=== PATIENT | male | born 1985 | race Caucasian/White ===

== ENCOUNTER 2016-11-29 23:09 | Emergency (ER) | payer MEDICAID ==
[~2016-11-29] VITALS: Ht 185.4 cm; Wt 104.3 kg
--- NOTE | 2016-11-30 00:07 | Emergency Room Report ---
History of Present Illness Time Seen by 233Lanie Presenting Problem in Triage Pt arrived:Walked Presenting Problem:C/O SEVERE LOW BACK PAIN WHICH RADIATES DOWN RIGHT LEG X 2 DAYS. HX SCIATICA AND HERNIATED DISC X 2 Onset of symptoms date/time:/ or onset unknown for:MEDICAL HX UNKNOWN Treatment Prior to Arrival: [facility] Provided by: Sepsis Risk Assessment: Temp: 98.4 B/P: 143/87 MAP: 105 Pulse: 80 Resp: 20 Recent fever? N Clinical Suspician of Infection? N Mental Status: 1 - Regular (Normal Baseline) Sepsis Risk:Low Sepsis RiskN Have you (or family members/close friends) recently traveled outside the [place]? N If Yes, where/when: Have you had exposure to infectious disease within the past month? N TB? Other? Specify: Source patient, RN notes reviewed, old records Exam Limitations no limitations Comment wm with hx of lumbar pain with rad to rt lower leg with hx of lumbar disc disease - no fever/rash/trauma or b/b or cauda equina sx -he reports inc over the last few days Cardiac Chest Pain Chest pain indicative of cardiac No Timing/Duration this evening Severity moderate ALLERGIES Coded Allergies: codeine (11/29/16) lidocaine (11/29/16) History Medical History General CAD? No Angina: No [place]: No Hypertension? No Hyperlipidemia? No CHF? No DVT? No PE? No COPD? No Asthma? No Anemia? No GERD? No Gastric ulcers? No GI Bleed? No Hernia? No Thyroid Problems? No Hypothyroidism? No CVA? No Seizures? No Diabetes? No Renal Insuffiency? No End Stage Renal Disease? No UTI? No Stones? No BPH? No GB Disease: No Nephritic Syndrome? No Asplenia? No Hepatitis? No Sickle Cell Disease? No Arthritis? No Migraines? No Cataracts? No Glaucoma? No MRSA? No HIV? No TB? No Anxiety? No Depression? No Cancer? No Immunization Hx DT/Tetanus 1-4 Years Ago Surgical Hx Previous Surgery?Y APPENDECTOMY Social History Smoking Hx Smoker: Current Every Day Smoker Tobacco: Yes Type Cigarettes Packs/day < 1 Pack Alcohol Alcohol: Yes Drugs none Review of Systems All Other Systems Reviewed and Negative Constitutional denies fever Eyes denies drainage ENT denies: ear discharge, epistaxis, throat pain. Respiratory denies cough, denies shortness of breath, denies wheezing Cardiovascular denies chest pain, denies palpitations, denies syncope Gastrointestinal denies abdominal pain, denies diarrhea, denies vomiting Genitourinary denies: dysuria, frequency, hesitancy, hematuria. Musculoskeletal see HPI, back pain, denies joint pain, denies joint swelling, denies neck pain Skin denies rash Psychiatric/Neurological denies headache, denies seizure Physical Exam Vital Signs Vital Signs Date Time Temp Pulse Resp B/P Pulse O2 O2 Flow FiO2 Ox Delivery Rate 11/29 2317 98.4 80 20 143/87 97 - WBC >12,000 or <4,000 or 10% bands? 2 or more SIRS Criteria Met? B/P:143/87 MAP:105 Creatinine >2.0? UA output<0.5ml/kg/hr for 2 hrs? Platelet count >100,000? Lactate >2.0mmol/1? INR >1.2 or PTT > than 60 sec? Evidence of Organ Dysfunction? Provider documented clinical suspician of infection? N Sepsis Criteria Count: 1N Sepsis Risk: Low Sepsis RiskN General Appearance no apparent distress Eye Exam - bilateral eye PERRL, bilateral eye EOMI Ear, Nose, Throat normal ENT inspection Neck supple Respiratory Status No: respiratory distress. Cardiovascular regular rate/rhythm Peripheral Pulses Pulses normal Yes Gastrointestinal soft Back no CVA tenderness, no vertebral tenderness, bowel/bladder continent, strt leg raising(R)-ABNL, decreased range of motion, muscle spasm Extremities normal inspection Strength 4 Upper Ext (L), 4 Upper Ext (R), 4 Lower Ext (L), 4 Lower Ext (R) Neurologic alert, overnight stocker II-XII nml as tested, no motor/sensory deficits Reflexes Reflexes normal No Mental status normal mood/affect Skin no rash cons.w/shingles Medical Decision Making LABS/Meds/Orders Pt receiving controlled substance in ED? No Results/Orders Current Medication Orders Sig/Brock Start time Last Medication Dose Route Stop Time Status Admin Hydrocodone Bitart/ 1 TAB ONCE ONE 11/30 29 r Acetaminophen PO 11/30 30 Orphenadrine Citrate 60 MG ONCE ONE 11/30 29 AC IM 11/30 30 Tramadol HCl 1 KADEEM ONCE ONE 11/30 29 r PO 11/30 30 Dexamethasone Sodium 8 MG ONCE ONE 11/30 14 DC Phosphate IM 12/01 15 Ketorolac 60 MG ONCE ONE 09/07 0015 DC Tromethamine IM 11/30 0016 Orders Procedure Date/time Status DIET-NOTHING BY MOUTH 11/[address] LUMBAR SPINE W/O CONTRAST 11/[address] SCAN REQ 11/29 2328 Complete XRAY/CT/US XRAY/CT/US CT L-spine CT interpretation by discussed w/radiologist Time results known: 0012 CT Results no fracture seen (see chart), abnormal Departure Departure Time of Disposition 0013 Disposition DC Home or Self Care(routine) Clinical Impression Primary Impression: Lumbar disc disease with radiculopathy Condition STABLE Patient Instructions DI for Back Pain With Sciatica Additional Instructions use meds and see pcp for follow up Discharge Counseling Counseled pt/family regarding diagnosis, test results, medications/RX, follow up needs Prescriptions Current Visit Scripts Prednisone (Prednisone 20MG) 20 MG PO BID #10 TAB ED Critical Care Critical Care No at 0017
[2016-11-30] MEDS ORDERED: PREDNISONE 20MG20 MG PO (00:14)
[2016-11-30 00:19] VITALS: BP 143/87
--- NOTE | 2016-11-30 07:21 | RADIOLOGY REPORT PS360 ---
CT LUMBAR SPINE W/O CONTRAST CLINICAL INDICATION: Low back pain, history of herniated disc C/O LOW BACK PAIN ORDERING PHYSICIAN: Mendel Riley MD PATIENT AGE: 31 years COMPARISON: None TECHNIQUE:Axial, sagittal, and coronal images are generated and reviewed without contrast COMPARISON: None FINDINGS: There is normal alignment. No fracture or dislocation. No lytic or blastic change. There is mild degenerative disc disease at L4-L5 with mild bulging disc along with mild facet and ligamentum flavum hypertrophy with mild bilateral lateral recess and foraminal narrowing. Minimal bulging disc L3-L4. Bulging disc present at L5-S1 slightly eccentric towards the right. IMPRESSION: Degenerative disc disease L4-L5 with bulging disc at L3-L4, L4-5, and L5-S1. MRI may be of further value to determine if there is any neural impingement
== END 2016-11-30 00:19 | disposition home or self-care (01) ==
LOC: ER 23:09
DX: M51.16 Intervertebral disc disorders with radiculopathy, lumbar region (principal)